=== PATIENT | female | born 1955 | race Asian ===

== ENCOUNTER 2016-11-27 13:09 | Emergency (ER) | payer OTHER ==
[~2016-11-27] VITALS: Ht 160 cm; Wt 70.3 kg
[2016-11-27 15:24] LABS: BASOPHIL % 0.4 % (0-2); PLATELET COUNT 209 x10^3mcL (130-400); RED CELL DISTRIBUTION WIDTH 12.6 % (11.5-14.5)
[2016-11-27 15:42] LABS: ALBUMIN 3.7 g/dL (3.4-5.0); ALKALINE PHOSPHATASE 110 U/L (46-116); ALT/SGPT 23 U/L (14-59); AST/SGOT 20 U/L (15-37); CALCIUM 8.8 mg/dL (8.5-10.1); CARBON DIOXIDE 28.9 mmol/L (21-32); CHLORIDE SERUM 106 mmol/L (98-107); CREATININE SERUM 0.7 mg/dL (0.6-1.0); GFR1 > 60 mL/min; GLUCOSE SERUM 138 mg/dL (74-106); HDL CHOLESTEROL 54 mg/dL (40-60); MAGNESIUM 1.9 mg/dL (1.8-2.4); POTASSIUM SERUM 3.8 mmol/L (3.5-5.1); SODIUM SERUM 143 mmol/L (136-145); TOTAL PROTEIN, SERUM 7.6 g/dL (6.4-8.2)
[2016-11-27 15:43] LABS: CHOLESTEROL 230 mg/dL (<200)
[2016-11-27 16:35] LABS: microscopic required? NO
[2016-11-27 16:44] LABS: UA SPECIFIC GRAVITY 1.015 (1.005-1.035); urine erythrocyte NEGATIVE (NEGATIVE)
[2016-11-27 18:35] VITALS: BP 102/64
== END 2016-11-27 18:35 | disposition home or self-care (01) ==
LOC: ED 13:09
PROVIDERS: Emergency Medicine
DX: M54.2 Cervicalgia (principal); I10 Essential (primary) hypertension; M25.511 Pain in right shoulder; M25.512 Pain in left shoulder; E78.00 Pure hypercholesterolemia, unspecified
CPT/HCPCS: 82962; 83880; J1100; J1885